=== PATIENT | female | born 1980 | race Hispanic/Latino ===

== ENCOUNTER 2017-05-27 14:41 | Emergency (ER) | payer SELFPAY ==
[2017-05-27 15:30] LABS: #Basophils 0.1 thou/uL (0.0-0.2); #Eosinphils 0.2 thou/uL (0.0-0.7); #Lymphocytes 1.7 thou/uL (1.20-3.40); #Monocytes 0.5 thou/uL (0.11-0.59); #Neutrophils 6.7 thou/uL (1.40-6.50); %Basophils 0.8 % (0.0-1.0); %Eosinophils 1.8 % (0.0-10.0); %Lymphocytes 18.3 % (21.0-51.0); %Monocytes 5.7 % (0.0-10.0); %Neutrophils 73.5 % (42.0-75.0); Hemoglobin 12.6 g/dL (12.0-16.0); Mean Corpuscular HGB CONC 34.4 g/dL (32.0-36.0); Mean Corpuscular Hemoglobin 28.3 pg (27.0-31.0); Mean Corpuscular Volume 82.4 fl (81.0-99.0); Mean Platelet Volume 9.2 fL (7.4-10.4); Platelet Count 242 thou/uL (130-400); Red Blood Cell (RBC) Count 4.46 mill/uL (4.20-5.40); White Blood Cell (WBC) Count 9.1 thou/uL (4.8-10.8)
[2017-05-27 15:44] LABS: ALT (SGPT) 43 U/L (8-55); AST (SGOT) 65 U/L (5-34); Albumin 3.9 g/dL (3.5-5.0); Alkaline Phosphatase 95 U/L (40-150); Anion Gap 14 mmol/L (10-20); BUN (Urea Nitrogen) 16 mg/dL (7.0-18.7); Bilirubin, Total 0.7 mg/dL (0.2-1.2); Calc. Creatinine Clearance 0 mL/min (70-130); Calcium 8.7 mg/dL (7.8-10.44); Carbon Dioxide 23 mmol/L (22-29); Chloride 109 mmol/L (98-107); Estimated GFR-MDRD 78; Glucose 123 mg/dL (70-105); Lipase 28 U/L (8-78); Potassium 4.2 mmol/L (3.5-5.1); Protein, Total 6.9 g/dL (6.0-8.3); Sodium 142 mmol/L (136-145)
[2017-05-27] MEDS ORDERED: Morphine 4 MG/ML Carpuject ONE (16:01)
[2017-05-27] MEDS ORDERED: Metoclopramide HCl 10 MG/2 ML VIAL ONE (16:01)
[2017-05-27] MEDS ORDERED: Famotidine/PF 20 mg/2ml Vial ONE (16:01)
== END 2017-05-27 17:42 | disposition home or self-care (01) ==
LOC: SCSER 14:41
DX: K29.70 Gastritis, unspecified, without bleeding (principal)
CPT/HCPCS: 36415; 80053; 83690; 85025; 96365; 96366; 96375; J2270; J2765; S0028

== ENCOUNTER 2018-11-18 07:48 | Emergency (ER) | payer SELFPAY | END 2018-11-18 08:37 | disposition home or self-care (01) | LOC: SCSER 07:48 | DX: M54.2 Cervicalgia (principal) | CPT/HCPCS: 99283 ==

== ENCOUNTER 2022-07-18 13:42 | Emergency (ER) | payer SELFPAY ==
[2022-07-18] MEDS ORDERED: Acetaminophen 500 MG TAB ONE (14:21)
[2022-07-18] MEDS ORDERED: Prochlorperazine 10 MG/2 ML VIAL ONE (14:21)
[2022-07-18] MEDS ORDERED: diphenhydrAMINE 50 MG/ML VIAL ONE (14:21)
== END 2022-07-18 15:38 | disposition home or self-care (01) ==
LOC: ERS 13:42
DX: M54.2 Cervicalgia (principal)
CPT/HCPCS: 70450; 72125; 96374; 96375; J0780; J1200